=== PATIENT | female | born 1950 ===

== ENCOUNTER → 2018-09-06 19:24 | Outpatient (REF) | payer MEDICARE, OTHER, SELFPAY ==
[2018-09-06 19:43] LABS: Estimated Glomerular Filt Rate > 60.0 mL/min (>60)
== END ==
LOC: LAB 19:24
PROVIDERS: Visit Provider Family Medicine
DX: R79.89 Other specified abnormal findings of blood chemistry (principal)
CPT/HCPCS: 36415; 82565